=== PATIENT | female | born 1980 | race Caucasian/White ===

== ENCOUNTER 2021-02-09 19:25 | Emergency (ER) | payer OTHER ==
[~2021-02-09] VITALS: Ht 175.3 cm; Wt 95.3 kg
[~2021-02-09 19:25] MED LIST: CIPRO500 MG PO; LEXAPRO 10 MG T10 MG PO; ZOFRAN ODT4 MG PO
[2021-02-09] MEDS ORDERED: IVERMECTIN3 MG PO (19:42)
[2021-02-09] MEDS ORDERED: FAMOTIDINE 10 M10 MG PO (19:42)
[2021-02-09 22:01] VITALS: BP 145/86
== END 2021-02-09 22:01 | disposition home or self-care (01) ==
LOC: M.ERS 19:25
DX: U07.1 COVID-19 (principal); F41.9 Anxiety disorder, unspecified; Z79.899 Other long term (current) drug therapy; Z88.8 Allergy status to other drugs, medicaments and biological substances

== ENCOUNTER 2021-02-19 10:52 | Emergency (ER) | payer OTHER ==
[~2021-02-19] VITALS: Ht 175.3 cm; Wt 95.3 kg
[~2021-02-19 10:52] MED LIST changes: +FAMOTIDINE 10 M10 MG PO; +IVERMECTIN3 MG PO
[2021-02-19] MEDS ORDERED: ZYRTEC10 M5 PO (12:14)
[2021-02-19 14:28] LABS: ABSOLUTE LYMPHOCYTES 0.8 thou/uL (0.8-5.3); ABSOLUTE MONOCYTES 0.5 thou/uL (0.0-1.2); ABSOLUTE NEUTROPHILS 5.2 thou/uL (1.6-8.1); BASOPHILS 0.3 %; EOSINOPHILS 0.1 %; HEMATOCRIT 47.1 % (37.0-47.0); HEMOGLOBIN 15.6 gm/dL (12.0-15.0); LYMPHOCYTES 12.1 %; MCH 30.4 pg (26.0-34.0); MCHC 33.1 g/dL (28.0-37.0); MCV 91.9 fL (80.0-100.0); MONOCYTES 7.8 %; MPV 8.8 fl. (7.2-11.1); NUCLEATED RBCS 0 /100WBC; PLATELET COUNT* 203 thou/uL (150-400); POLYS 79.7 %; RBC 5.13 mil/uL (4.20-5.00); RDW-CV 12.8 % (10.5-14.5); WBC 6.6 thou/uL (4.0-11.0)
[2021-02-19 14:38] LABS: CALCIUM 8.5 mg/dL (8.5-10.1); CREATININE 0.8 mg/dL (0.6-1.3); POTASSIUM 3.6 mmol/L (3.5-5.1)
[2021-02-19 14:42] LABS: ALBUMIN 3.2 g/dL (3.4-5.0); TOTAL BILIRUBIN 0.8 mg/dL (<0.1-1.0); TOTAL PROTEIN 7.7 g/dL (6.4-8.2)
[2021-02-19] MEDS ORDERED: LOMOTIL TABLET1 EACH PO (15:00)
[2021-02-19 15:22] VITALS: BP 131/68
== END 2021-02-19 15:24 | disposition home or self-care (01) ==
LOC: M.ERS 10:52
PROVIDERS: Family Medicine
DX: U07.1 COVID-19 (principal); R19.7 Diarrhea, unspecified; F41.9 Anxiety disorder, unspecified; Z79.899 Other long term (current) drug therapy; Z88.8 Allergy status to other drugs, medicaments and biological substances